=== PATIENT | male | born 1990 | race Caucasian/White ===

== ENCOUNTER 2020-05-03 06:38 | Emergency (ER) | payer OTHER, MEDICAID ==
[~2020-05-03] VITALS: Ht 180.3 cm; Wt 72.6 kg
[2020-05-03] MEDS ORDERED: MORPHINE SULFATE INJ 2 MG/ML DISP.SYRIN IV ONE (07:00)
[2020-05-03] MEDS ORDERED: IV NS 0.9% 1,000 ML BAG IV ONE (07:00)
[2020-05-03] MEDS ORDERED: CEFEPIME 1 GM in IV D5W 50 ML IV ONE (07:00)
[2020-05-03] MEDS ORDERED: ONDANSETRON HCL/PF 4 MG/2 ML VIAL IVP ONE (07:00)
[2020-05-03] MEDS ORDERED: VANCOMYCIN 1 GM in IV D5W 250 ML IV ONE (07:00)
[2020-05-03] MEDS ORDERED: CEFEPIME 1 GM VIAL ONE (07:01)
[2020-05-03] MEDS ORDERED: VANCOMYCIN 1 GM VIAL ONE (07:01)
[2020-05-03] MEDS ORDERED: ONDANSETRON HCL/PF 4 MG/2 ML VIAL ONE (07:02)
[2020-05-03] MEDS ORDERED: MORPHINE SULFATE INJ 4 MG/ML DISP.SYRIN ONE (07:03)
--- NOTE | 2020-05-03 07:05 | NUR ---
PATIENT CAME TO THE ER BED 13 [facility]IB[facility] FOR INCARCERATION C/O LEFT FOOT CELLULITIS. PATIENT STATES THAT HE HAD INJURED HIS FOOT BACK IN AND HAS BEEN TAKING DOXYCYCLINE AND AUGMENTIN. PATIENT'S LEFT FOOT IS RED, WARM, AND SWOLLEN. PATIENT IS AAOX4. NO SOB. BREATHING EVENLY AND UNLABORED ON ROOM AIR. CONNECTED TO THE MONITOR.
--- NOTE | 2020-05-03 07:11 | NUR ---
BLOOD COLLECTED AND SENT TO THE LAB WITH PHLEBOTOMISTS.
[2020-05-03 07:19] LABS: BASOPHILS # (AUTO) 0.1 /CMM (0.0-0.2); BASOPHILS % (AUTO) 0.5 % (0.0-2.0); EOSINOPHILS % (AUTO) 0.1 % (0.0-6.0); HEMATOCRIT 41 % (39-51); HEMOGLOBIN 13.4 g/dL (13.5-17.5); LYMPHOCYTES # (AUTO) 0.9 /CMM (0.8-4.8); LYMPHOCYTES % (AUTO) 8.1 % (20.0-44.0); MEAN CORPUSCULAR HGB CONC 33 g/dl (31.0-36.0); MEAN CORPUSCULAR VOLUME 84 fL (80-96); MONOCYTES # (AUTO) 0.6 /CMM (0.1-1.30); NEUTROPHILS % (AUTO) 86.3 % (43.0-81.0); PLATELET COUNT (AUTO) 390 /CMM (150-450); RED BLOOD CELL COUNT(AUTO) 4.86 MIL/uL (4.5-6.0); WHITE BLOOD COUNT (AUTO) 11.6 K/uL (4.3-11.0)
[2020-05-03 07:33] LABS: CALCIUM, SERUM 9.4 mg/dL (8.5-10.1); CREATININE 0.8 mg/dL (0.6-1.3); POTASSIUM 3.8 mmol/L (3.5-5.1)
[2020-05-03 07:38] LABS: ALBUMIN 3.9 g/dL (3.4-5.0); BILIRUBIN,DIRECT 0.1 mg/dL (0.0-0.2); BILIRUBIN,TOTAL 0.3 mg/dL (0.2-1.0); TOTAL PROTEIN, SERUM 7.9 g/dL (6.4-8.2)
--- NOTE | 2020-05-03 07:52 | NUR ---
RAPID COVID SWAB DONE AND SENT TO LAB
[2020-05-03] MEDS ORDERED: IV NS 0.9% 250 ML IV ONE (07:53)
[2020-05-03] MEDS ORDERED: CT SWABBABLE VALVE TRANS SET 1 EA INFUS.SET MC ONE (07:53)
[2020-05-03] MEDS ORDERED: IOHEXOL-300 100 ML VIAL IV ONE (07:53)
--- NOTE | 2020-05-03 07:55 | NUR ---
WHEELED OUT VIA [facility] BY [facility] FOR CT SCAN
[2020-05-03] MEDS ORDERED: MAGNESIUM HYDROXIDE 30 ML UDC PO PRN (08:00)
[2020-05-03] MEDS ORDERED: ACETAMINOPHEN 325 MG TABLET PO PRN (08:00)
[2020-05-03] MEDS ORDERED: TEMAZEPAM 15 MG CAPSULE PO PRN (08:00)
[2020-05-03] MEDS ORDERED: IV NS 0.9% 1,000 ML IV PRN (08:00)
[2020-05-03] MEDS ORDERED: MORPHINE SULFATE INJ 2 MG/ML DISP.SYRIN IV PRN (08:00)
[2020-05-03] MEDS ORDERED: MAG HYDROX/AL HYDROX/SIMETH 30 ML UDC PO PRN (08:00)
[2020-05-03] MEDS: ENOXAPARIN SODIUM 40 MG/0.4 ML DISP.SYRIN SQ SCH (08:00)
[2020-05-03] MEDS ORDERED: Z GUARD REMEDY 2 OZ OINT TP PRN (08:00)
[2020-05-03] MEDS ORDERED: PANTOPRAZOLE 40 MG TABLET.DR PO SCH (08:00)
[2020-05-03] MEDS ORDERED: ONDANSETRON HCL/PF 4 MG/2 ML VIAL IVP PRN (08:00)
--- NOTE | 2020-05-03 08:03 | NUR ---
SPOKE TO RAISA OF [facility] ([phone]). NO COVID RESULTS YET. WILL FAX RESULTS TO [phone] ONCE AVAILABLE.
[2020-05-03] MEDS ORDERED: ALPR0.5T8 PO (08:09)
--- NOTE | 2020-05-03 09:01 | NUR ---
RECEIVED RESULT FROM MAIN LAB: RAPID COVID NEGATIVE
--- NOTE | 2020-05-03 09:27 | NUR ---
FAXED COVID RESULTS AND CT SCAN RESULTS TO [facility].
[2020-05-03] MEDS ORDERED: ENOXAPARIN SODIUM 40 MG/0.4 ML DISP.SYRIN SQ ONE (09:32)
[2020-05-03] MEDS ORDERED: PANTOPRAZOLE 40 MG TABLET.DR PO ONE (09:33)
--- NOTE | 2020-05-03 09:37 | NUR ---
*TRANSFER INFO* [facility] CALLED BACK. PATIENT WILL BE GOING TO [facility] ROOM 853. NUMBER FOR REPORT [phone] DR. VIRGIE COATES MD. [facility] ETA 1 HOUR FOR S TRANSPORT.
--- NOTE | 2020-05-03 10:00 | NUR ---
REPORT GIVEN TO DARRIN MACHADO OF [facility]
--- NOTE | 2020-05-03 10:31 | NUR ---
PATIENT PICKED UP BY [facility] IN STABLE CONDITION. CLINICALS PROVIDED TO BE GIVEN TO [facility].
[2020-05-03 10:43] VITALS: BP 110/71
--- NOTE | 2020-05-03 10:45 | NUR ---
Patient transferred to [facility] with 2 ambulance staff, no signs of distress noted, VSS, All belongings with patient, report given to CARTER braun.
[2020-05-03] MEDS ORDERED: CEFEPIME 1 GM in IV D5W 50 ML IV SCH (21:00)
== END 2020-05-03 10:50 | disposition short-term general hospital (02) ==
LOC: ER 06:41
DX: L03.116 Cellulitis of left lower limb (principal); D72.829 Elevated white blood cell count, unspecified; G89.29 Other chronic pain; M54.5 Low back pain; F41.9 Anxiety disorder, unspecified; Z20.822 Contact with and (suspected) exposure to COVID-19
CPT/HCPCS: 36415; 73701 ×2; 80048; 80076; 83605; 85025; 85730; 87040 ×2; 87426; 96365; 96367; 96375; 99285; C9803; J0692; J2270; J2405; J3370; J7030; J7050; J7060 ×2; Q9967; J1650